=== PATIENT | female | born 1990 | race African-American/Black ===

== ENCOUNTER 2017-10-04 14:34 | Emergency (ER) | payer OTHER ==
[~2017-10-04] VITALS: Ht 160 cm; Wt 98.0 kg
[~2017-10-04 14:34] MED LIST: APAP500; DERMOPLAST SPRA56 ML; IBUPROFEN 800800 M1; LANOLIN56 GM; PRENATAL; PRENATAL MULTI1 EAC2; TUCKS MEDICATE1 EAC1
[2017-10-04 15:24] LABS: URINE BILIRUBIN NEGATIVE (Negative); URINE BLOOD NEGATIVE (Negative); URINE CLARITY CLEAR; URINE COLOR YELLOW; URINE GLUCOSE-RANDOM* NEGATIVE (Negative); URINE KETONES NEGATIVE (Negative); URINE LEUKOCYTES NEGATIVE (Negative); URINE NITRITE POSITIVE (Negative); URINE PROTEIN (DIPSTICK) NEGATIVE (Negative); URINE UROBILINOGEN 0.2 E.U./dl (0.2-1.0)
[2017-10-04 15:31] LABS: SQUAMOUS 0-3 Few /LPF (0-3); URINE RBC None Seen /HPF (0-2); URINE WBC 0-5 Rare /HPF (0-5)
[2017-10-04 15:32] LABS: BACTERIA >30 Many /HPF (None Seen); CASTS None Seen /LPF (None Seen); CRYSTALS None Seen /LPF (None Seen)
[2017-10-04] MEDS ORDERED: VENTOLIN HFA 1818 GM INH (16:10)
[2017-10-04] MEDS ORDERED: KEFLEX500 M1 PO (16:10)
== END 2017-10-04 16:31 | disposition home or self-care (01) ==
LOC: ER 14:34
PROVIDERS: Emergency Medicine
DX: J06.9 Acute upper respiratory infection, unspecified (principal); N39.0 Urinary tract infection, site not specified

== ENCOUNTER 2017-10-30 17:28 | Emergency (ER) | payer OTHER ==
[~2017-10-30] VITALS: Ht 165.1 cm; Wt 90.7 kg
--- NOTE | ~2017-10-30 | EKG ---
[place] [address] [facility] [place] [address] ELECTROCARDIOGRAM REPORT Name: CHE NARAYANAN [facility] [id number] Admission: 10/30/17 Attend Phys: Discharge: 10/30/17 Date of : [birth year] Report #: [id number] THIS REPORT FOR: //name// [facility] ED Test Date: 2017-10-30 Test Time: 18:22:59 Pat Name: CHE NARAYANAN Department: Room: Gender: F Patient Services Assistant: ANU : 1990 Requested By: Dillon Paredes Order Number: [id number] MD: Dontae Elizabeth Measurements Intervals [place] Rate: 82 P: 63 AR: 141 QRS: 40 QRSD: 83 T: 30 QT: 366 QTc: 428 Interpretive Statements Sinus rhythm RSR' in V1 or V2, probably normal variant No previous ECG available for comparison Electronically Signed On 10-31-2017 7:54:19 SAMPLE GRINDER by Dontae Elizabeth [email or web address] <ELECTRONICALLY SIGNED> By: Dontae Elizabeth MD, [facility] 10/31/17 0754 1822 21 Dontae Elizabeth MD, FACC /EPI
[~2017-10-30 17:28] MED LIST changes: +KEFLEX500 M1 PO; +VENTOLIN HFA 1818 GM INH
[2017-10-30 19:04] LABS: ABSOLUTE NEUTROPHILS 5.3 thou/uL (1.4-8.2); BASOPHILS 1.3 % (0.0-2.0); HEMATOCRIT 38.8 % (37.0-47.0); HEMOGLOBIN 13.2 gm/dL (12.0-15.0); MCH 31.3 pg (26.0-34.0); MCV 92.1 fL (80.0-100.0); MONOCYTES 9.4 % (1.0-8.0); PLATELET COUNT 279 thou/uL (150-400); POLYS 53.3 % (36.0-66.0); RBC 4.21 mil/uL (4.20-5.00); RDW 13.5 % (10.5-14.5)
[2017-10-30 19:12] LABS: CREATININE 0.8 mg/dL (0.6-1.0); POTASSIUM 3.7 mmol/L (3.5-5.1)
[2017-10-30] MEDS ORDERED: TESSALON PERLE100 MG PO (21:35)
[2017-10-30] MEDS ORDERED: PEPCID40 MG PO (21:35)
[2017-10-30] MEDS ORDERED: NAPROSYN500 MG PO (21:35)
== END 2017-10-30 21:48 | disposition home or self-care (01) ==
LOC: ER 17:28
PROVIDERS: Emergency Medicine
DX: J06.9 Acute upper respiratory infection, unspecified (principal); R07.89 Other chest pain; G89.29 Other chronic pain

== ENCOUNTER → 2018-01-22 | Outpatient (CLI) | payer OTHER ==
[~2018-01-22] MED LIST changes: +NAPROSYN500 MG PO; +PEPCID40 MG PO; +TESSALON PERLE100 MG PO
== END ==
LOC: NUC 06:49
DX: R10.84 Generalized abdominal pain (principal)

== ENCOUNTER 2018-03-24 16:36 | Emergency (ER) | payer OTHER ==
[~2018-03-24] VITALS: Ht 160 cm; Wt 90.7 kg
--- NOTE | ~2018-03-24 | EKG ---
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
[2018-03-24] MEDS ORDERED: OMEPRAZOLE40 MG PO (16:47)
[2018-03-24 17:36] LABS: ABSOLUTE NEUTROPHILS 3.5 thou/uL (1.4-8.2); EOSINOPHILS 2.1 % (0.0-3.0); HEMATOCRIT 39.3 % (37.0-47.0); HEMOGLOBIN 13.6 gm/dL (12.0-15.0); LYMPHOCYTES 32.2 % (24.0-44.0); MCH 31.8 pg (26.0-34.0); MCHC 34.7 g/dL (28.0-37.0); MCV 91.7 fL (80.0-100.0); MONOCYTES 9.2 % (1.0-8.0); PLATELET COUNT 279 thou/uL (150-400); POLYS 55.5 % (36.0-66.0); RBC 4.29 mil/uL (4.20-5.00); RDW 13.2 % (10.5-14.5); WBC 6.4 thou/uL (4.0-11.0)
[2018-03-24 17:46] LABS: ANION GAP 8 mmol/L (7-16); BUN 12 mg/dL (7-18); CALCIUM 8.7 mg/dL (8.5-10.1); CHLORIDE 105 mmol/L (98-107); CO2 25 mmol/L (21-32); CREATININE 0.8 mg/dL (0.6-1.0); GLUCOSE 93 mg/dL (74-106); POTASSIUM 3.5 mmol/L (3.5-5.1); SODIUM 138 mmol/L (136-145)
[2018-03-24 17:55] LABS: TROPONIN-I <0.06 ng/mL (<0.06)
[2018-03-24 18:26] VITALS: BP 107/60
== END 2018-03-24 18:26 | disposition home or self-care (01) ==
LOC: ER 16:36
PROVIDERS: Emergency Medicine
DX: R07.9 Chest pain, unspecified (principal); R19.7 Diarrhea, unspecified; R05 Cough

== ENCOUNTER 2020-06-18 18:02 | Emergency (ER) | payer OTHER ==
[~2020-06-18] VITALS: Ht 160 cm; Wt 104.3 kg
[~2020-06-18 18:02] MED LIST changes: +OMEPRAZOLE40 MG PO
[2020-06-18 19:14] LABS: ABSOLUTE NEUTROPHILS 4.6 thou/uL (1.4-8.2); BASOPHILS 0.9 % (0.0-2.0); EOSINOPHILS 1.3 % (0.0-3.0); HEMATOCRIT 41.4 % (37.0-47.0); HEMOGLOBIN 14.3 gm/dL (12.0-15.0); LYMPHOCYTES 35.1 % (24.0-44.0); MCH 32.9 pg (26.0-34.0); MCHC 34.7 g/dL (28.0-37.0); MCV 94.9 fL (80.0-100.0); MONOCYTES 10.3 % (1.0-8.0); PLATELET COUNT 277 thou/uL (150-400); POLYS 52.4 % (36.0-66.0); RBC 4.36 mil/uL (4.20-5.00); RDW 13.9 % (10.5-14.5); WBC 8.8 thou/uL (4.0-11.0)
[2020-06-18 19:25] LABS: CREATININE 0.9 mg/dL (0.6-1.0); POTASSIUM 3.4 mmol/L (3.5-5.1)
[2020-06-18 19:28] LABS: ALBUMIN 3.9 g/dL (3.4-5.0); TOTAL BILIRUBIN 0.4 mg/dL (0.2-1.0); TOTAL PROTEIN 8.1 g/dL (6.4-8.2)
[2020-06-18 20:24] LABS: URINE BILIRUBIN NEGATIVE (Negative); URINE BLOOD NEGATIVE (Negative); URINE CLARITY CLEAR; URINE COLOR YELLOW; URINE GLUCOSE-RANDOM* NEGATIVE (Negative); URINE KETONES TRACE (Negative); URINE LEUKOCYTES-REFLEX TRACE (Negative); URINE NITRITE-REFLEX NEGATIVE (Negative); URINE PROTEIN (DIPSTICK) NEGATIVE (Negative)
[2020-06-18 20:55] VITALS: BP 126/70
--- NOTE | 2020-06-19 07:49 | EKG ---
[facility] [place] [address] ELECTROCARDIOGRAM REPORT Name: CHE NARAYANAN Room #: [facility]#: [id number] Admission: 06/18/20 Attend Phys: Discharge: 06/18/20 Date of : [birth year] Report #: [id number] THIS REPORT FOR: cc: Ann Dietrich MD, Nora P. MD Lundgren,Dontae Georges MD [facility] ~ THIS REPORT FOR: //name// [facility] ED Test Date: 2020-06-18 Test Time: 19:02:38 Pat Name: CHE NARAYANAN Department: Room: Gender: F Child Life Assistant: GIL : 1990 Requested By: Junior Resendiz Order Number: [id number] MD: Dontae Elizabeth Measurements Intervals [place] Rate: 93 P: 55 OR: 124 QRS: 26 QRSD: 81 T: 14 QT: 345 QTc: 430 Interpretive Statements Sinus rhythm Normal tracing Compared to ECG 03/24/2018 16:49:49 No significant changes Electronically Signed On 06-19-2020 7:49:20 CDT by Dontae Elizabeth [email or web address] <ELECTRONICALLY SIGNED> By: Dontae Elizabeth MD, FACC 06/19/20 0749 190 01 Dontae Elizabeth MD, [facility] /EPI
== END 2020-06-18 21:06 | disposition home or self-care (01) ==
LOC: ER 18:02
PROVIDERS: Emergency Medicine
DX: R25.1 Tremor, unspecified (principal); R42 Dizziness and giddiness; Z79.899 Other long term (current) drug therapy

== ENCOUNTER 2020-06-21 01:36 | Emergency (ER) | payer OTHER ==
[~2020-06-21] VITALS: Ht 157.5 cm; Wt 104.3 kg
[2020-06-21] MEDS ORDERED: MECLIZINE HCL25 M1 PO (02:13)
[2020-06-21] MEDS ORDERED: MUCUS-ER MAX1200 MG PO (02:13)
[2020-06-21 02:20] VITALS: BP 158/104
== END 2020-06-21 02:26 | disposition home or self-care (01) ==
LOC: ER 01:36
DX: J32.9 Chronic sinusitis, unspecified (principal); Z79.899 Other long term (current) drug therapy

== ENCOUNTER 2020-06-23 01:47 | Emergency (ER) | payer OTHER ==
[~2020-06-23] VITALS: Ht 160 cm; Wt 99.8 kg
[~2020-06-23 01:47] MED LIST changes: +MECLIZINE HCL25 M1 PO; +MUCUS-ER MAX1200 MG PO
[2020-06-23 05:18] LABS: ABSOLUTE NEUTROPHILS 4.1 thou/uL (1.4-8.2); EOSINOPHILS 2.7 % (0.0-3.0); HEMATOCRIT 40.7 % (37.0-47.0); HEMOGLOBIN 13.6 gm/dL (12.0-15.0); LYMPHOCYTES 35.1 % (24.0-44.0); MCH 32.3 pg (26.0-34.0); MCHC 33.4 g/dL (28.0-37.0); MCV 96.7 fL (80.0-100.0); PLATELET COUNT 239 thou/uL (150-400); POLYS 49.2 % (36.0-66.0); RBC 4.21 mil/uL (4.20-5.00); RDW 14.1 % (10.5-14.5); WBC 8.3 thou/uL (4.0-11.0)
[2020-06-23 05:19] LABS: ANION GAP 10 mmol/L (7-16); BUN 16 mg/dL (7-18); CALCIUM 8.5 mg/dL (8.5-10.1); CHLORIDE 106 mmol/L (98-107); CO2 22 mmol/L (21-32); CREATININE 0.7 mg/dL (0.6-1.0); GLUCOSE 99 mg/dL (74-106); POTASSIUM 4.1 mmol/L (3.5-5.1); SODIUM 138 mmol/L (136-145)
[2020-06-23 05:26] LABS: ALBUMIN 3.3 g/dL (3.4-5.0); DIRECT BILIRUBIN < 0.1 mg/dL (<0.1-0.2); SGOT 18 U/L (15-37); SGPT 24 U/L (30-65); TOTAL BILIRUBIN 0.3 mg/dL (0.2-1.0); TOTAL PROTEIN 6.9 g/dL (6.4-8.2)
[2020-06-23 07:18] VITALS: BP 104/63
--- NOTE | 2020-06-24 07:40 | EKG ---
[facility] [place] [address] ELECTROCARDIOGRAM REPORT Name: CHE NARAYANAN Room #: [facility]#: [id number] Admission: 06/23/20 Attend Phys: Discharge: 06/23/20 Date of : [birth year] Report #: [id number] THIS REPORT FOR: cc: Ann Dietrich MD, Nora P. 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: MARYAM : 1990 Requested By: Elena Butterfield Order Number: [id number] MD: Dontae Elizabeth Measurements Intervals [place] Rate: 94 P: 56 [place]: 125 QRS: 33 QRSD: 74 T: 16 QT: 339 QTc: 424 Interpretive Statements Sinus rhythm Normal tracing Compared to ECG 06/18/2020 19:02:38 No significant changes Electronically Signed On 06-24-2020 7:40:37 CDT by Dontae Elizabeth [email or web address] <ELECTRONICALLY SIGNED> By: Dontae Elizabeth MD, [facility] 06/24/20 0740 2 Dontae Elizabeth MD, [facility] /EPI
== END 2020-06-23 07:19 | disposition home or self-care (01) ==
LOC: ER 01:47
PROVIDERS: Emergency Medicine
DX: R00.2 Palpitations (principal); R20.2 Paresthesia of skin; Z79.899 Other long term (current) drug therapy

== ENCOUNTER 2020-09-12 11:53 | Emergency (ER) | payer OTHER ==
[~2020-09-12] VITALS: Ht 160 cm; Wt 99.8 kg
[2020-09-12] MEDS ORDERED: LIDOCAINE VISC100 ML SWISH&SPIT (15:04)
[2020-09-12] MEDS ORDERED: BENADRYL A12.5 MG/5 PO (15:04)
[2020-09-12] MEDS ORDERED: PRILOSEC OTC20 MG PO (15:04)
[2020-09-12 15:30] VITALS: BP 124/100
--- NOTE | 2020-09-13 08:51 | EKG ---
[place] [address] [facility] [place] [address] ELECTROCARDIOGRAM REPORT Name: CHE NARAYANAN VINITALETTY Room #: DEP [facility]#: [id number] Admission: 09/12/20 Attend Phys: Discharge: 09/12/20 Date of : [birth year] Report #: [id number] [facility] [place] [facility] ED Test Date: 2020-09-12 Test Time: 12:00:58 Pat Name: CHE NARAYANAN Department: Room: Gender: F Infant Toddler Lead Teacher: JEET : 1990 Requested By: Jade Marie Order Number: [id number] : Camron Mcallister Measurements Intervals [place] Rate: 91 P: 62 [place]: 124 QRS: 39 QRSD: 74 T: 27 QT: 365 QTc: 450 Interpretive Statements Sinus rhythm Compared to ECG 06/23/2020 02:03:52 No significant changes Electronically Signed On 09-13-2020 8:51:06 DATA REPORT ANALYST by Camron Mcallister [email or web address] <ELECTRONICALLY SIGNED> By: Camron Mcallister MD, [facility] 09/13/20 0851 1200 [facility] Camron Mcallister MD, FACPraneeth /EPI
== END 2020-09-12 15:32 | disposition home or self-care (01) ==
LOC: ER 11:53
DX: K21.9 Gastro-esophageal reflux disease without esophagitis (principal); M54.6 Pain in thoracic spine; Z98.890 Other specified postprocedural states

== ENCOUNTER 2020-09-22 14:06 | Emergency (ER) | payer OTHER ==
[~2020-09-22] VITALS: Ht 162.6 cm; Wt 65.8 kg
[~2020-09-22 14:06] MED LIST changes: +BENADRYL A12.5 MG/5 PO; +LIDOCAINE VISC100 ML SWISH&SPIT; +PRILOSEC OTC20 MG PO
[2020-09-22 15:40] LABS: ABSOLUTE NEUTROPHILS 3.4 thou/uL (1.4-8.2); BASOPHILS 1.3 % (0.0-2.0); HEMATOCRIT 40.8 % (37.0-47.0); HEMOGLOBIN 13.7 gm/dL (12.0-15.0); MCH 31.9 pg (26.0-34.0); MCHC 33.5 g/dL (28.0-37.0); MCV 95.2 fL (80.0-100.0); MONOCYTES 10.6 % (1.0-8.0); PLATELET COUNT 308 thou/uL (150-400); POLYS 50.1 % (36.0-66.0); RBC 4.28 mil/uL (4.20-5.00); RDW 13.4 % (10.5-14.5); WBC 6.8 thou/uL (4.0-11.0)
[2020-09-22 15:57] LABS: ANION GAP 10 mmol/L (7-16); BUN 11 mg/dL (7-18); CHLORIDE 104 mmol/L (98-107); CO2 21 mmol/L (21-32); CREATININE 0.8 mg/dL (0.6-1.0); GLUCOSE 90 mg/dL (74-106); POTASSIUM 3.7 mmol/L (3.5-5.1); SODIUM 135 mmol/L (136-145)
[2020-09-22 16:02] LABS: ALBUMIN 3.7 g/dL (3.4-5.0); SGOT 19 U/L (15-37); SGPT 27 U/L (14-59); TOTAL BILIRUBIN 0.8 mg/dL (0.2-1.0); TOTAL PROTEIN 7.5 g/dL (6.4-8.2); TROPONIN-I <0.06 ng/mL (<0.06)
--- NOTE | 2020-09-22 16:57 | EKG ---
[address] [address] ELECTROCARDIOGRAM REPORT Name: CHE NARAYANAN VINITAMAHAMEDIVANAlla Room #: [facility].#: [id number] Admission: Attend Phys: Discharge: Date of : [birth year] Report #: [id number] [facility] ED Test Date: 2020-09-22 Test Time: 14:17:36 Pat Name: CHE NARAYANAN Department: Room: Gender: F Purse Framer: JEET : 1990 Requested By: Jesus Zaldivar Order Number: [id number] MD: Camron Mcallister Measurements Intervals [place] Rate: 74 P: 58 SC: 131 QRS: 28 QRSD: 77 T: 19 QT: 378 QTc: 420 Interpretive Statements Sinus rhythm Compared to ECG 09/12/2020 12:00:58 No significant changes Electronically Signed On 09-22-2020 16:57:12 ART HISTORY PROFESSOR by Camron Mcallister [email or web address] <ELECTRONICALLY SIGNED> By: Camron Mcallister MD, [facility] 09/22/20 1657 1417 1417 Camron Mcallister MD, FACC /EPI
[2020-09-22] MEDS ORDERED: CARAFATE1 GM PO (17:55)
[2020-09-22] MEDS ORDERED: OMEPRAZOLE40 MG PO (17:55)
[2020-09-22 18:06] VITALS: BP 130/78
== END 2020-09-22 18:30 | disposition home or self-care (01) ==
LOC: ER 14:06
PROVIDERS: Emergency Medicine
DX: K21.9 Gastro-esophageal reflux disease without esophagitis (principal); R07.89 Other chest pain; M54.6 Pain in thoracic spine; M54.2 Cervicalgia; E66.9 Obesity, unspecified; Z79.899 Other long term (current) drug therapy; Z68.24 Body mass index [BMI] 24.0-24.9, adult

== ENCOUNTER 2020-09-26 02:44 | Emergency (ER) | payer OTHER ==
[~2020-09-26] VITALS: Ht 160 cm; Wt 104.3 kg
[~2020-09-26 02:44] MED LIST changes: +CARAFATE1 GM PO
[2020-09-26 03:40] LABS: ABSOLUTE NEUTROPHILS 4.6 thou/uL (1.4-8.2); BASOPHILS 1.3 % (0.0-2.0); EOSINOPHILS 2.9 % (0.0-3.0); HEMATOCRIT 38.2 % (37.0-47.0); HEMOGLOBIN 12.8 gm/dL (12.0-15.0); LYMPHOCYTES 28.4 % (24.0-44.0); MCH 31.8 pg (26.0-34.0); MCHC 33.5 g/dL (28.0-37.0); MONOCYTES 10.6 % (1.0-8.0); PLATELET COUNT 303 thou/uL (150-400); POLYS 56.8 % (36.0-66.0); RBC 4.02 mil/uL (4.20-5.00); RDW 13.2 % (10.5-14.5); WBC 8.2 thou/uL (4.0-11.0)
[2020-09-26 03:53] LABS: ANION GAP 10 mmol/L (7-16); BUN 14 mg/dL (7-18); CALCIUM 8.8 mg/dL (8.5-10.1); CHLORIDE 105 mmol/L (98-107); CO2 24 mmol/L (21-32); CREATININE 0.9 mg/dL (0.6-1.0); GLUCOSE 95 mg/dL (74-106); POTASSIUM 3.2 mmol/L (3.5-5.1); SODIUM 139 mmol/L (136-145)
[2020-09-26 04:15] LABS: ALBUMIN 3.6 g/dL (3.4-5.0); LIPASE 190 U/L (73-393); SGOT 18 U/L (15-37); SGPT 30 U/L (14-59); TOTAL BILIRUBIN 0.5 mg/dL (0.2-1.0); TOTAL PROTEIN 7.1 g/dL (6.4-8.2); TROPONIN-I <0.06 ng/mL (<0.06)
[2020-09-26] MEDS ORDERED: CARAFATE1 GM PO (06:38)
[2020-09-26 06:43] VITALS: BP 143/87
--- NOTE | 2020-09-28 07:25 | EKG ---
[place] [address] [place] [address] ELECTROCARDIOGRAM REPORT Name: CHE NARAYANAN Room #: DEP [facility]#: [id number] Admission: 09/26/20 Attend Phys: Discharge: 09/26/20 Date of : [birth year] Report #: [id number] [facility] ED Test Date: 2020-09-26 Test Time: 02:52:08 Pat Name: CHE NARAYANAN Department: Room: Gender: F Pressure Controller: FLORIN : 1990 Requested By: Jame Madera Order Number: [id number] MD: Dontae Elizabeth Measurements Intervals [place] Rate: 105 P: 47 GA: 129 QRS: 30 QRSD: 79 T: 23 QT: 343 QTc: 454 Interpretive Statements Sinus tachycardia Baseline wander in lead(s) II,aVF Compared to ECG 09/22/2020 14:17:36 Heart rate is increased Electronically Signed On 09-28-2020 7:25:28 ELECTRICAL MANUFACTURING ENGINEER by Dontae Elizabeth [email or web address] <ELECTRONICALLY SIGNED> By: Dontae Elizabeth MD, [facility] 09/28/20 0725 1 1 Dontae Elizabeth MD, FACC /EPI
== END 2020-09-26 06:52 | disposition home or self-care (01) ==
LOC: ER 02:44
PROVIDERS: Emergency Medicine
DX: R07.9 Chest pain, unspecified (principal); K21.9 Gastro-esophageal reflux disease without esophagitis; Z79.899 Other long term (current) drug therapy

== ENCOUNTER 2020-10-01 02:05 | Emergency (ER) | payer OTHER ==
[~2020-10-01] VITALS: Ht 160 cm; Wt 104.3 kg
[2020-10-01 03:05] LABS: URINE BILIRUBIN NEGATIVE (Negative); URINE BLOOD NEGATIVE (Negative); URINE CLARITY CLEAR; URINE COLOR YELLOW; URINE GLUCOSE-RANDOM* NEGATIVE (Negative); URINE KETONES NEGATIVE (Negative); URINE LEUKOCYTES-REFLEX 1+ (Negative); URINE NITRITE-REFLEX NEGATIVE (Negative); URINE PROTEIN (DIPSTICK) NEGATIVE (Negative); URINE UROBILINOGEN 0.2 E.U./dl (0.2-1.0)
[2020-10-01 03:21] LABS: ABSOLUTE NEUTROPHILS 3.3 thou/uL (1.4-8.2); BASOPHILS 1.1 % (0.0-2.0); HEMATOCRIT 37.9 % (37.0-47.0); HEMOGLOBIN 12.6 gm/dL (12.0-15.0); LYMPHOCYTES 42.3 % (24.0-44.0); MCHC 33.4 g/dL (28.0-37.0); MCV 95.8 fL (80.0-100.0); MONOCYTES 14.6 % (1.0-8.0); PLATELET COUNT 288 thou/uL (150-400); RBC 3.95 mil/uL (4.20-5.00); RDW 13.3 % (10.5-14.5); WBC 8.4 thou/uL (4.0-11.0)
[2020-10-01 03:22] LABS: BACTERIA-REFLEX 1-9 Few /HPF (None Seen); CASTS None Seen /LPF (None Seen); CRYSTALS None Seen /LPF (None Seen); MUCUS 4-6 Moderate strn/LPF (None Seen); SQUAMOUS 0-3 Few /LPF (0-3); URINE RBC 0-2 Rare /HPF (0-2); URINE WBC-REFLEX 6-15 Few /HPF (0-5)
[2020-10-01 03:32] LABS: ANION GAP 13 mmol/L (7-16); BUN 10 mg/dL (7-18); CALCIUM 8.6 mg/dL (8.5-10.1); CHLORIDE 102 mmol/L (98-107); CO2 25 mmol/L (21-32); CREATININE 1.1 mg/dL (0.6-1.0); GLUCOSE 86 mg/dL (74-106); POTASSIUM 3.6 mmol/L (3.5-5.1); SODIUM 140 mmol/L (136-145)
[2020-10-01 03:42] LABS: ALBUMIN 3.5 g/dL (3.4-5.0); DIRECT BILIRUBIN < 0.1 mg/dL (<0.1-0.2); LIPASE 219 U/L (73-393); MAGNESIUM 2.2 mg/dL (1.8-2.4); SGOT 18 U/L (15-37); SGPT 28 U/L (30-65); TOTAL BILIRUBIN 0.3 mg/dL (0.2-1.0); TOTAL PROTEIN 6.9 g/dL (6.4-8.2); TROPONIN-I <0.06 ng/mL (<0.06)
[2020-10-01] MEDS ORDERED: MACROBID 100 M100 M1 PO (04:48)
[2020-10-01] MEDS ORDERED: ZANAFLEX4 MG PO (04:48)
[2020-10-01] MEDS ORDERED: NAPROSYN500 MG PO (04:48)
[2020-10-01] MEDS ORDERED: TYLENOL325 M1 PO (04:48)
[2020-10-01 04:58] VITALS: BP 146/80
--- NOTE | 2020-10-01 07:19 | EKG ---
[address] [address] ELECTROCARDIOGRAM REPORT Name: CHE NARAYANAN VINITALETTY Room #: DEP [facility]#: [id number] Admission: 10/01/20 Attend Phys: Discharge: 10/01/20 Date of : [birth year] Report #: [id number] [facility] ED Test Date: 2020-10-01 Test Time: 02:33:43 Pat Name: CHE NARAYANAN Department: Room: Gender: F Clinical Editor: RESHMA : 1990 Requested By: Robbie Lo Order Number: [id number] MD: Camron Mcallister Measurements Intervals [place] Rate: 70 P: 47 OR: 141 QRS: 24 QRSD: 88 T: 22 QT: 387 QTc: 418 Interpretive Statements Sinus rhythm Compared to ECG 09/26/2020 02:52:08 Sinus tachycardia no longer present Electronically Signed On 10-01-2020 7:19:04 RANGE MANAGEMENT SPECIALIST by Camron Mcallister [email or web address] <ELECTRONICALLY SIGNED> By: Camron Mcallister MD, [facility] 10/01/20 0719 0233 0233 Camron Mcallister MD, FACC /EPI
[2020-10-04] MEDS ORDERED: KEFLEX500 M1 PO (07:31)
== END 2020-10-01 04:59 | disposition home or self-care (01) ==
LOC: ER 02:05
PROVIDERS: Emergency Medicine
DX: R07.89 Other chest pain (principal); N39.0 Urinary tract infection, site not specified; M43.6 Torticollis; K21.9 Gastro-esophageal reflux disease without esophagitis; Z79.899 Other long term (current) drug therapy; Z98.890 Other specified postprocedural states

== ENCOUNTER 2020-10-03 04:12 | Emergency (ER) | payer OTHER ==
[~2020-10-03] VITALS: Ht 160 cm; Wt 104.3 kg
[~2020-10-03 04:12] MED LIST changes: +MACROBID 100 M100 M1 PO; +TYLENOL325 M1 PO; +ZANAFLEX4 MG PO
[2020-10-03 04:16] VITALS: BP 150/100
[2020-10-04] MEDS ORDERED: KEFLEX500 M1 PO (07:31)
== END 2020-10-03 04:59 | disposition home or self-care (01) ==
LOC: ER 04:12
DX: R00.2 Palpitations (principal); R42 Dizziness and giddiness; K21.9 Gastro-esophageal reflux disease without esophagitis; Z79.899 Other long term (current) drug therapy; Z98.890 Other specified postprocedural states

== ENCOUNTER 2020-11-08 01:25 | Emergency (ER) | payer OTHER ==
[~2020-11-08] VITALS: Ht 160 cm; Wt 104.3 kg
[2020-11-08 03:22] LABS: ABSOLUTE NEUTROPHILS 3.8 thou/uL (1.4-8.2); EOSINOPHILS 2.9 % (0.0-3.0); HEMATOCRIT 41.2 % (37.0-47.0); HEMOGLOBIN 13.3 gm/dL (12.0-15.0); LYMPHOCYTES 40.9 % (24.0-44.0); MCHC 32.4 g/dL (28.0-37.0); MCV 95.6 fL (80.0-100.0); PLATELET COUNT 282 thou/uL (150-400); POLYS 47.2 % (36.0-66.0); RBC 4.31 mil/uL (4.20-5.00); RDW 13.1 % (10.5-14.5); WBC 8.1 thou/uL (4.0-11.0)
[2020-11-08 03:32] LABS: ANION GAP 12 mmol/L (7-16); BUN 14 mg/dL (7-18); CALCIUM 8.6 mg/dL (8.5-10.1); CHLORIDE 104 mmol/L (98-107); CO2 23 mmol/L (21-32); CREATININE 0.9 mg/dL (0.6-1.0); GLUCOSE 83 mg/dL (74-106); POTASSIUM 3.2 mmol/L (3.5-5.1); SODIUM 139 mmol/L (136-145)
[2020-11-08 03:41] LABS: TROPONIN-I <0.06 ng/mL (<0.06)
[2020-11-08 04:16] VITALS: BP 110/59
--- NOTE | 2020-11-08 09:25 | EKG ---
[place] [address] [facility] [place] [address] ELECTROCARDIOGRAM REPORT Name: CHE NARAYANAN DYLANAlla Room #: DEP [facility]#: [id number] Admission: 11/08/20 Attend Phys: Discharge: 11/08/20 Date of : [birth year] Report #: [id number] [facility] ED Test Date: 2020-11-08 Test Time: 01:49:47 Pat Name: CHE NARAYANAN Department: Room: Gender: F Quality Rn: FLORIN : 1990 Requested By: Elena Butterfield Order Number: [id number] MD: Beck Lui Measurements Intervals [place] Rate: 73 P: 49 RI: 142 QRS: 18 QRSD: 80 T: 19 QT: 374 QTc: 413 Interpretive Statements Sinus arrhythmia Baseline wander in lead(s) V2 Compared to ECG 10/03/2020 04:26:06 Sinus rhythm no longer present Electronically Signed On 11-08-2020 9:25:05 CABLE LAYER by Beck Lui [email or web address] <ELECTRONICALLY SIGNED> By: Bekc Lui MD 11/08/20924 8 0149 Beck Lui MD /JULIA
== END 2020-11-08 04:28 | disposition home or self-care (01) ==
LOC: ER 01:25
PROVIDERS: Emergency Medicine
DX: S29.011A Strain of muscle and tendon of front wall of thorax, initial encounter (principal); K21.9 Gastro-esophageal reflux disease without esophagitis; Z79.899 Other long term (current) drug therapy; X58.XXXA Exposure to other specified factors, initial encounter; Y93.89 Activity, other specified; Y92.89 Other specified places as the place of occurrence of the external cause; Y99.8 Other external cause status

== ENCOUNTER 2021-10-01 16:26 | Emergency (ER) | payer OTHER ==
[~2021-10-01] VITALS: Ht 160 cm; Wt 98.4 kg
[2021-10-01 16:36] VITALS: BP 139/97
--- NOTE | 2021-10-02 09:39 | EKG ---
[place] [address] [facility] [place] [address] ELECTROCARDIOGRAM REPORT Name: CHE NARAYANAN Room #: DEP [facility]#: [id number] Admission: 10/01/21 Attend Phys: Discharge: 10/01/21 Date of : [birth year] Report #: [id number] [facility] ED Test Date: 2021-10-01 Test Time: 16:35:17 Pat Name: CHE NARAYANAN Department: Room: Gender: F Aircraft Restorer: JOSE : 1990 Requested By: Nubia Simons Order Number: [id number] MD: Camron Mcallister Measurements Intervals [place] Rate: 59 P: 36 ID: 139 QRS: 21 QRSD: 73 T: 14 QT: 393 QTc: 390 Interpretive Statements Sinus rhythm Baseline wander in lead(s) V5,V6 Compared to ECG 11/08/2020 01:49:47 Sinus arrhythmia no longer present Electronically Signed On 10-02-2021 9:38:36 FIRER KILN by Camron Mcallister [email or web address] <ELECTRONICALLY SIGNED> By: Camron Mcallister MD, [facility] 10/02/21 0938 34 34 Camron Mcallister MD, FACC /EPI
== END 2021-10-01 18:24 | disposition home or self-care (01) ==
LOC: ER 16:26
DX: R07.89 Other chest pain (principal); F41.9 Anxiety disorder, unspecified; R51.9 Headache, unspecified; K21.9 Gastro-esophageal reflux disease without esophagitis